=== PATIENT | male | born 1965 | race Caucasian/White ===

== ENCOUNTER 2022-04-09 10:51 | Emergency (ER) | payer OTHER ==
[2022-04-09] MEDS ORDERED: Ondansetron PF 4 MG/2 ML Vial ONE ×2 (11:22→13:16)
[2022-04-09 11:24] LABS: #Basophils 0.1 10x3/uL (0.0-0.2); #Eosinphils 0.5 10x3/uL (0.0-0.5); #Monocytes 0.6 10x3/uL (0.0-1.1); #Neutrophils 3.6 10x3/uL (1.5-8.4); %Basophils 0.7 % (0.0-2.0); %Eosinophils 7.6 % (0.0-6.0); %Lymphocytes 29.9 % (18.0-47.0); %Monocytes 8.6 % (0.0-10.0); %Neutrophils 53.1 % (40.0-75.0); Mean Corpuscular HGB CONC 34.4 g/dL (32.0-36.0); Mean Corpuscular Volume 90.2 fl (81.2-95.1); Mean Platelet Volume 8.8 fl (7.4-10.4); Platelet Count 268 10x3/uL (150-450); RBC Distribution Width 12.4 % (11.5-14.5); Red Blood Cell (RBC) Count 4.19 10x6/uL (4.32-5.72); White Blood Cell (WBC) Count 6.8 10x3/uL (3.5-10.5)
[2022-04-09 11:42] LABS: ALT (SGPT) 23 U/L (8-55); AST (SGOT) 21 U/L (5-34); Albumin 4.5 g/dL (3.5-5.0); Alkaline Phosphatase 51 U/L (40-110); Anion Gap 15 mmol/L (10-20); BUN (Urea Nitrogen) 20 mg/dL (8.4-25.7); Bilirubin, Total 0.6 mg/dL (0.2-1.2); Calc. Creatinine Clearance 0 mL/min (70-130); Calcium 9.6 mg/dL (7.8-10.44); Carbon Dioxide 26 mmol/L (22-29); Chloride 101 mmol/L (98-107); Glucose 112 mg/dL (70-105); Potassium 4.7 mmol/L (3.5-5.1); Protein, Total 7.5 g/dL (6.0-8.3); Sodium 137 mmol/L (136-145)
[2022-04-09] MEDS ORDERED: Racepinephrine 2.25% 0.5 ML NEB ONE (12:19)
[2022-04-09] MEDS ORDERED: Sodium Chloride For Inhalation 0.9% 3 ML NEB ONE (12:20)
[2022-04-09] MEDS ORDERED: PROPOFOL 20 ML ONE (13:16)
[2022-04-09] MEDS ORDERED: Rocuronium Bromide 10 MG/ML (10ML VIAL) ONE (13:16)
[2022-04-09] MEDS ORDERED: Dexamethasone 20 MG/5 ML VIAL ONE (13:16)
[2022-04-09] MEDS ORDERED: Fentanyl 100 MCG/2 ML VIAL ONE ×3 (13:16→15:11)
[2022-04-09] MEDS ORDERED: Midazolam HCl 2 mg/2 ml Vial ONE (13:16)
[2022-04-09] MEDS ORDERED: Succinylcholine 200 MG/10 ml SYRINGE FS ONE (13:16)
[2022-04-09] MEDS ORDERED: EPINEPHrine 1 MG/ML AMP ONE (13:42)
[2022-04-09] MEDS ORDERED: SUGAMMADEX SODIUM 200 MG/2 ML VIAL ONE (13:46)
[2022-04-09 13:56] LABS: SARS-CoV-2 NAA Rapid Test Not Detected (NotDetected)
== END 2022-04-09 12:37 | disposition admitted as inpatient to this hospital (09) ==
LOC: CSHERS 10:51
PROC: 0C9M8ZZ Drainage of Pharynx, Via Natural or Artificial Opening Endoscopic (ICD-10-PCS; principal; 2022-04-09)
DX: R04.1 Hemorrhage from throat (principal); Z98.890 Other specified postprocedural states; E11.9 Type 2 diabetes mellitus without complications
CPT/HCPCS: 80053; 85025; 86850; 86900; 86901; 96374; J0171; J1100; J2250; J2405; J2704; J3010; U0002